=== PATIENT | female | born 1965 | race Hispanic/Latino ===

== ENCOUNTER 2017-02-26 11:15 | Outpatient (CLI) | payer MEDICARE ==
--- NOTE | 2017-02-26 12:50 | XRay Report ---
LEFT SHOULDER: History: Left shoulder pain. Mild osteopenia is evident. There is normal articulation of the left shoulder. No evidence for fracture, dislocation or ligamentous injury. No significant arthritis. IMPRESSION: Osteopenia. Otherwise, normal left shoulder.
--- NOTE | 2017-02-26 12:51 | XRay Report ---
CERVICAL SPINE, 3 views: History: Neck pain, injury. Findings: Osteopenia is evident. There is normal height and alignment of the cervical vertebral bodies. No evidence for fracture, subluxation or bone lesion. Minimal degenerative disc disease and facet arthropathy are identified at all levels. No advanced degenerative changes. The dens is intact. The prevertebral soft tissues are normal thickness. Impression: Osteopenia. Mild multilevel cervical spondylosis. No acute process noted.
== END 2017-02-26 11:16 | disposition home or self-care (01) ==
LOC: XRAY 11:15
PROVIDERS: ATTEND Psychiatry & Neurology Neurology
DX: M47.892 Other spondylosis, cervical region (principal); M85.88 Other specified disorders of bone density and structure, other site; M12.88 Other specific arthropathies, not elsewhere classified, other specified site; M50.30 Other cervical disc degeneration, unspecified cervical region; M85.812 Other specified disorders of bone density and structure, left shoulder
CPT/HCPCS: 72040